=== PATIENT | male | born 1970 | race Caucasian/White ===

== ENCOUNTER 2021-01-21 09:49 | Outpatient (CLI) | payer MEDICARE, MEDICAID ==
[2021-01-21 22:08] LABS: SARS-CoV-2 PCR by NAA Not Detected (NotDetected)
== END 2021-01-21 09:50 | disposition home or self-care (01) ==
LOC: LABBT 09:49
PROVIDERS: ATTEND Internal Medicine Gastroenterology
DX: Z01.812 Encounter for preprocedural laboratory examination (principal); D50.9 Iron deficiency anemia, unspecified; Z20.822 Contact with and (suspected) exposure to COVID-19
CPT/HCPCS: U0003; U0005

== ENCOUNTER 2021-01-26 09:06 | Day surgery (SDC) | payer MEDICARE, MEDICAID ==
[2021-01-25 12:28] VITALS: BMI 25.9
[2021-01-26] MEDS ORDERED: PROPOFOL 200 MG/20 ML VIAL ONE (11:11)
== END 2021-01-26 13:10 | disposition home or self-care (01) ==
LOC: SDC 09:06
PROVIDERS: ATTEND Internal Medicine Gastroenterology
PROC: 0DB98ZX Excision of Duodenum, Via Natural or Artificial Opening Endoscopic, Diagnostic (ICD-10-PCS; principal; 2021-01-26)
PROC: 0DJD8ZZ Inspection of Lower Intestinal Tract, Via Natural or Artificial Opening Endoscopic (ICD-10-PCS; 2021-01-26)
DX: D50.9 Iron deficiency anemia, unspecified (principal); K59.89 Other specified functional intestinal disorders; K44.9 Diaphragmatic hernia without obstruction or gangrene; F79 Unspecified intellectual disabilities; Z79.899 Other long term (current) drug therapy; Z88.8 Allergy status to other drugs, medicaments and biological substances
CPT/HCPCS: 88305; J2704

== ENCOUNTER 2022-12-01 07:14 | Outpatient (CLI) | payer MEDICARE, MEDICAID | END 2022-12-01 07:15 | disposition home or self-care (01) | LOC: NM 07:14 | DX: G21.11 Neuroleptic induced parkinsonism (principal) | CPT/HCPCS: 78803; A9584 ×2 ==

== ENCOUNTER 2023-07-21 06:16 | Day surgery (SDC) | payer MEDICARE, MEDICAID ==
[2023-07-20 11:58] VITALS: BMI 25.3
[2023-07-21] MEDS ORDERED: Lidocaine 2% PF 5 ML VIAL ONE (08:12)
[2023-07-21] MEDS ORDERED: PROPOFOL 40 ML ONE (08:13)
== END 2023-07-21 09:30 ==
LOC: SDC 06:16
PROVIDERS: ATTEND Internal Medicine Gastroenterology
PROC: 0DJ08ZZ Inspection of Upper Intestinal Tract, Via Natural or Artificial Opening Endoscopic (ICD-10-PCS; principal; 2023-07-21)
DX: K22.89 Other specified disease of esophagus (principal); K44.9 Diaphragmatic hernia without obstruction or gangrene; D64.9 Anemia, unspecified; Z79.899 Other long term (current) drug therapy; Z88.8 Allergy status to other drugs, medicaments and biological substances; Z87.01 Personal history of pneumonia (recurrent)
CPT/HCPCS: 43235; J2001; J2704